=== PATIENT | male | born 1950 | race Caucasian/White ===

== ENCOUNTER → 2021-01-27 12:02 | Outpatient (CLI) | payer MEDICARE, OTHER, SELFPAY ==
--- NOTE | 2021-01-27 | DI.MRI.S_ITS ---
PROCEDURE: MR CERVICAL SPINE WO CON INDICATIONS: Cervicalgia TECHNIQUE: Noncontrast sagittal T1 spin echo and T2 fast spin echo, sagittal STIR, foraminal oblique sagittal T2 fast spin echo, and axial gradient echo or T2 fast spin echo through the cervical spine. COMPARISON: None. FINDINGS: Image quality: Excellent. Alignment and Curvature: Straightening of the usual cervical lordosis, likely degenerative. Otherwise normal alignment. Vertebral body heights maintained. Bone Marrow: Marrow demonstrates normal overall signal. Spinal Cord: Visualized spinal cord has normal size and signal. No cerebellar tonsillar herniation. Regional Soft Tissues: No paravertebral masses. Prevertebral soft tissues are normal in thickness. C2-C3: No spinal canal or neural foraminal stenosis. C3-C4: No spinal canal stenosis. Facet and uncovertebral hypertrophy contribute to moderate right neural foraminal stenosis. C4-C5: Mild spinal canal stenosis due to posterior disc osteophyte complex. Mild bilateral neural foraminal stenosis due to facet and uncovertebral hypertrophy. C5-C6: Mild spinal canal stenosis due to posterior disc osteophyte complex. Moderate bilateral neural foraminal narrowing due to facet and uncovertebral hypertrophy. C6-C7: No spinal canal stenosis. Moderate bilateral neural foraminal stenosis due to facet and uncovertebral hypertrophy. C7-T1: No spinal canal or neural foraminal stenosis. IMPRESSION: Multilevel multifactorial degenerative changes producing very degrees of neural foraminal stenosis up to moderate. Dictated by: Herve Pickett M.D. on 01/27/2021 at 13:24 Approved by: Herve Pickett M.D. on 01/27/2021 at 13:31
== END ==
PROVIDERS: PCP Family Medicine; Referring Provider Physical Medicine & Rehabilitation; Visit Provider Physical Medicine & Rehabilitation
DX: M54.2 Cervicalgia (principal); M47.812 Spondylosis without myelopathy or radiculopathy, cervical region; M48.02 Spinal stenosis, cervical region
CPT/HCPCS: 72141

== ENCOUNTER → 2021-04-29 11:56 | Outpatient (CLI) | payer MEDICARE, OTHER, SELFPAY ==
--- NOTE | 2021-04-29 | DI.MRI.S_ITS ---
PROCEDURE: MR LUMBAR SPINE WO CON INDICATIONS: Spinal stenosis, lumbar region without neurogenic claudicati TECHNIQUE: Noncontrast sagittal T1 spin echo and T2 fast echo, sagittal STIR, axial T1 and T2 fast spin echo through the lumbar spine. In cases with scoliosis, additional coronal T2 fast spin echo may be performed. COMPARISON: Outside Film, CT, CT ABDOMEN PELVIS WITH CONTRAST, 05/28/2017, 13:45. [facility], CT, CT ABDOMEN RENAL PROTOCOL, 10/27/2019, 15:01. FINDINGS: Image quality: This examination is limited by involuntary motion artifact. Alignment and Curvature: Mild levoconvex scoliotic curvature is noted. No focal AP alignment abnormality is seen. Bone Marrow: Marrow is of normal overall signal. No acute vertebral body compression fractures. Spinal Cord: Conus medullaris terminates at the L1 level. Visualized cord demonstrates normal signal and size. Paraspinous Soft Tissues: No paravertebral masses. T12-L1: The disc height is well-preserved. Loss of disc signal is seen at this level. Mild to moderate disc bulge is seen. Minimal facet hypertrophy is seen. Moderate bilateral neural foraminal narrowing is seen. Minimal central canal narrowing is seen. L1-L2: The disc height is well-preserved. Loss of disc signal is seen at this level. Moderate disc bulge is seen, which is eccentric to the right. Mild facet joint hypertrophy is seen. There is moderate to severe right-sided and moderate left-sided neural foraminal narrowing seen. Likely compression can be seen upon the exiting right L1 nerve root. Mild central canal narrowing is seen. L2-L3: The disc height is well-preserved. Loss of disc signal is seen at this level. At least moderate disc bulge is seen, which is eccentric to the right. There is a central/right disc protrusion seen. Moderate facet joint hypertrophy is seen. There is moderate to severe bilateral neural foraminal narrowing seen. There is a degree of compression seen upon the exiting nerve roots. At least moderate central canal narrowing is seen. L3-L4: Moderate loss of disc height is seen. Loss of disc signal is seen. Moderate generalized disc bulge is seen. There is a superimposed central disc protrusion. Mild to moderate facet hypertrophy is seen. There is at least moderate left-sided and moderate to severe right-sided neural foraminal narrowing seen. There is a degree of compression seen upon the exiting right L3 nerve root. At least moderate central canal narrowing is seen L4-L5: Mild loss of disc height is seen. Loss of disc signal is seen. At least moderate disc bulge is seen. There is a superimposed central disc protrusion. At least moderate facet hypertrophy is seen. Associated hypertrophy of the ligamentum flavum can be seen. Moderate to severe bilateral neural foraminal narrowing can be seen, left worse than right. There is a degree of compression seen upon the exiting nerve roots. At least moderate central canal narrowing is seen. L5-S1: The disc height is well-preserved. Loss of disc signal is seen at this level. Moderate disc bulge is seen, which is eccentric to the left. At least moderate facet hypertrophy is seen, left worse than right. There is at least moderate left-sided and moderate right-sided neural foraminal narrowing. No significant central canal narrowing is seen. IMPRESSION: Multiple levels of lumbar spine degenerative change are seen, which are worst at L3-L4 and L4-L5. Several sites of significant neural foraminal narrowing can be seen, with associated exiting nerve root compression. Mild levoconvex scoliotic curvature is noted. Dictated by: Royce Amaro M.D. on 04/29/2021 at 12:46 Approved by: Royce Amaro M.D. on 04/29/2021 at 12:52
== END ==
PROVIDERS: PCP Family Medicine; Referring Provider Physical Medicine & Rehabilitation; Visit Provider Physical Medicine & Rehabilitation
DX: M48.061 Spinal stenosis, lumbar region without neurogenic claudication (principal); M48.07 Spinal stenosis, lumbosacral region; M47.816 Spondylosis without myelopathy or radiculopathy, lumbar region; M47.817 Spondylosis without myelopathy or radiculopathy, lumbosacral region; M41.9 Scoliosis, unspecified
CPT/HCPCS: 72148